=== PATIENT | male | born 1955 | race Caucasian/White ===

== ENCOUNTER 2016-08-20 08:38 | Day surgery (SDC) | payer OTHER ==
[~2016-08-20] VITALS: Ht 165.1 cm; Wt 93.7 kg
[2016-08-20 09:19] VITALS: Ht 165.1 cm; Wt 93.7 kg
[2016-08-20] MEDS ORDERED: FOR CHOLESTEROL (09:28)
[2016-08-20] MEDS ORDERED: FOR HTN (09:28)
[2016-08-20] MEDS ORDERED: [UNRECOGNIZED DRUG - OTHER] (09:29)
[2016-08-20 09:46] VITALS: BP 149/91; PULSE 59; RESP 16
[2016-08-20] MEDS ORDERED: PROPOFOL 20 ML ONE (10:05)
[2016-08-20] MEDS ORDERED: MIDAZOLAM 1 MG/ML 2 ML INJ ONE (10:06)
[2016-08-20] MEDS ORDERED: FENTAnyl 50 MCG/ML VIAL ONE (10:06)
[2016-08-20] MEDS ORDERED: METOPROLOL 5 MG INJ ONE (10:06)
[2016-08-20 11:12] VITALS: BP 102/68; PULSE 74; RESP 16
--- NOTE | 2016-08-21 05:58 | GILP ---
DATE OF PROCEDURE: NAME OF THE PROCEDURE: Colonoscopy. SURGEON: Kyle Stock MD. PREOPERATIVE DIAGNOSIS: Screening colonoscopy. POSTOPERATIVE DIAGNOSES 1. Colonoscopy all the way to the cecum. 2. Poor prep, making the exam somewhat suboptimal. 3. No gross neoplasm was identified. 4. Internal hemorrhoids. INDICATION FOR THE PROCEDURE: Mr. Konstantin Shepherd is a 61-year-old male patient who was scheduled for a screening colonoscopy. The procedure and possible complications are well explained to the patient. He understood and conse nted to the procedure. DESCRIPTION OF PROCEDURE: Under the influence of anesthesia, the colonoscope was carefully introduc ed in the rectum, and under direct vision, it was advanced all the way to the cecum. FINDINGS: The patient had somewhat poor prep, making the exam somewhat suboptimal. There was no gr oss neoplasm identified. He was noted to have internal hemorrhoids. He tolerated the procedure very well, and there was no complication from the procedure. At the end of the procedure, he was awake with stable vital signs, and he was discharged home to the care of hi s family. IMPRESSION 1. Colonoscopy all the way to the cecum. 2. Poor prep, making the exam somewhat suboptimal. 3. Internal hemorrhoids. PLAN: Because of the poor prep and suboptimal nature of the examination, would recommend repeat col onoscopy in 3 years. Dictated By: KYLE ARVIZU/SAIRA Conf#: [id number] DID#: [id number]
== END 2016-08-20 11:59 | disposition home or self-care (01) ==
LOC: GIL 08:38
PROVIDERS: ATTEND Internal Medicine Gastroenterology
DX: Z12.11 Encounter for screening for malignant neoplasm of colon (principal); K64.8 Other hemorrhoids
CPT/HCPCS: 45378; J2250; J3010; Z7610